=== PATIENT | male | born 2000 | race Asian ===

== ENCOUNTER 2022-09-14 11:43 | Outpatient (CLI) | payer BC, OTHER | END 2022-09-14 11:44 | disposition home or self-care (01) | LOC: CSHWCC 11:43 | PROVIDERS: ATTEND Nurse Practitioner Family | DX: S80.812D Abrasion, left lower leg, subsequent encounter (principal); S91.002D Unspecified open wound, left ankle, subsequent encounter; R60.0 Localized edema | CPT/HCPCS: 29581; 99204; G0463 ==

== ENCOUNTER 2022-10-18 09:08 | Outpatient (CLI) | payer OTHER, BC | END 2022-10-18 09:09 | disposition home or self-care (01) | LOC: CSHWCC 09:08 | PROVIDERS: ATTEND Nurse Practitioner Family | DX: S81.002D Unspecified open wound, left knee, subsequent encounter (principal); S91.002D Unspecified open wound, left ankle, subsequent encounter; R60.0 Localized edema | CPT/HCPCS: 97607 ==

== ENCOUNTER 2022-10-25 14:31 | Outpatient (CLI) | payer BC, OTHER | END 2022-10-25 14:32 | disposition home or self-care (01) | LOC: CSHWCC 14:31 | PROVIDERS: ATTEND Nurse Practitioner Family | DX: R60.0 Localized edema (principal); S91.002D Unspecified open wound, left ankle, subsequent encounter; S81.002D Unspecified open wound, left knee, subsequent encounter | CPT/HCPCS: 99213; G0463 ==

== ENCOUNTER 2022-11-08 13:05 | Outpatient (CLI) | payer BC, OTHER | END 2022-11-08 13:06 | disposition home or self-care (01) | LOC: CSHWCC 13:05 | PROVIDERS: ATTEND Nurse Practitioner Family | DX: S91.002D Unspecified open wound, left ankle, subsequent encounter (principal) | CPT/HCPCS: 99213; G0463 ==